=== PATIENT | male | born 1990 | race Caucasian/White ===

== ENCOUNTER 2024-01-22 00:43 | Emergency (ER) | payer OTHER, SELFPAY ==
--- NOTE | ~2024-01-22 | CT_ITS ---
CT of the Abdomen and Pelvis: Indication: Abdominal pain Technique: 2.5 mm axial scans were obtained through the abdomen and pelvis following intravenous adm inistration of 100 cc of Omnipaque 350. Dose reduction technique was used on this scan by utilizing a utomated exposure control and iterative reconstruction technique. The dose-length product (DLP) was 6 63.73 mGy-cm. Findings: Scans through the lung bases are unremarkable. The liver, spleen, pancreas, gallbladder, adrenals and kidneys are within normal limits. No evidence of aortic aneurysm. No lymphadenopathy. No bowel obstruction or bowel wall thickening. There is no evidence to suggest acute appendicitis. Images through the pelvis were performed. Urinary bladder unremarkable. No pelvic mass seen. No ascit es. Impression: No significant abnormalities seen. Reviewed, dictated and finalized at location . [facility] CONSULTANT Impression: No significant abnormalities seen.
[2024-01-22 00:49] VITALS: BP 143/99; PULSE 65; RESP 18; TEMP 36.6; O2SAT 100
[2024-01-22 00:53] VITALS: BP 143/99; PULSE 61; RESP 18; TEMP 36.6; O2SAT 100
--- NOTE | 2024-01-22 00:56 | ED_ITS ---
HPI - Abdominal Pain General Chief Complaint: Abdominal Pain <ASHKAN Handy Last Filed: 01/22/24 03:10> Stated Complaint: abd pain <ASHKAN Handy Last Filed: 01/22/24 03:10> Time Seen by Provider: 01/22/24 00:44 <ASHKAN Handy Last Filed: 01/22/24 03:10> History of Present Illness HPI narrative: 33-year-old male with no past medical history presents emergency department for left lower quadrant abdominal pain intermittently for 3 days. Patient states the pain is sharp and located on his left lower quadrant, worse after bowel movement and when sitting up. He reports associated nausea and vomiting this afternoon. Denies fever, dysuria or hematuria, history of kidney stones or diverticulitis. Denies diarrhea, hematochezia or melena, fever. No prior abdominal surgeries. Last bowel movement was yesterday and normal. <ASHKAN Handy Last Filed: 01/22/24 03:10> Related Data Allergies/Adverse Reactions: Allergies Allergy/AdvReac Type Severity Reaction Status Date / Time No Known Allergies Allergy Verified 01/22/24 00:53 <ASHKAN Handy Last Filed: 01/22/24 03:10> Review of Systems Review of Systems: All systems reviewed & are unremarkable except as noted in HPI and below <ASHKAN Handy Last Filed: 01/22/24 03:10> Exam Narrative: GENERAL: Well-appearing, well-nourished, and in no acute distress. HEAD: Normocephalic, atraumatic. EYES: EOMI. ENT: Nares clear, no rhinorrhea or epistaxis. Mucous membranes moist. NECK: Supple. CHEST: Clear to auscultation. No respiratory distress. HEART: Regular rate and rhythm. No murmur heard. Normal peripheral pulses. ABDOMEN: Normoactive bowel sounds. Abdomen soft with tenderness in the left l ower quadrant. No rebound, guarding or rigidity. No CVA tenderness. EXTREMITIES: Normal range of motion. No edema. SKIN: Warm, dry, no rash. NEURO: No focal deficits. Alert and oriented x3 <Imani Bella PA-C - Last Filed: 01/22/24 03:10> Course SUPERVISOR OF OFFICIALS/PA Physician Supervision For this patient encounter, I reviewed the SUPERVISOR OF OFFICIALS or PA documentation, treatment plan, and medical decision making; and I had [id number] time with this patient. <Dany Bauer MD - Last Filed: 01/25/24 10:07> Vital Signs Vital signs: Vital Signs Temperature 97.8 F 01/22/24 00:49 Pulse Rate 65 01/22/24 00:49 Respiratory Rate 18 01/22/24 00:49 Blood Pressure 143/99 H 01/22/24 00:49 Pulse Oximetry 100 01/22/24 00:49 Oxygen Delivery Room Air 01/22/24 00:49 Temperature 98.2 F 01/22/24 05:25 Pulse Rate 67 01/22/24 05:25 Respiratory Rate 14 01/22/24 05:25 Blood Pressure 140/88 01/22/24 05:25 Pulse Oximetry 100 01/22/24 05:25 Oxygen Delivery Room Air 01/22/24 00:49 <Imani Bella PA-C - Last Filed: 01/22/24 03:10> Vital Signs Temperature 97.8 F 01/22/24 00:49 Pulse Rate 65 01/22/24 00:49 Respiratory Rate 18 01/22/24 00:49 Blood Pressure 143/99 H 01/22/24 00:49 Pulse Oximetry 100 01/22/24 00:49 Oxygen Delivery Room Air 01/22/24 00:49 Temperature 98.2 F 01/22/24 05:25 Pulse Rate 67 01/22/24 05:25 Respiratory Rate 14 01/22/24 05:25 Blood Pressure 140/88 01/22/24 05:25 Pulse Oximetry 100 01/22/24 05:25 Oxygen Delivery Room Air 01/22/24 00:49 <Dany Bauer MD - Last Filed: 01/25/24 10:07> MDM - Abdominal Pain MDM Narrative Medical decision making narrative: 33-year-old male presents emergency department for left lower quadrant abdominal pain for 3 days, worsening this evening. Triage vitals are stable. He is afebrile nontoxic appearing. Exam is significant for the above. CBC without leukocytosis or anemia. Chemistries are unremarkable. Lipase normal. UA with leuk esterase, no UTI or RBCs Pending CT abdomen/pelvis at time of sign-out to Dr. Bauer. <Imani Bella PA-C - Last Filed: 01/22/24 03:10> 33-year-old male presents emergency department for left lower quadrant abdominal pain for 3 days, worsening this evening. Triage vitals are stable. He is afebrile nontoxic appearing. Exam is significant for the above. CBC without leukocytosis or anemia. Chemistries are unremarkable. Lipase normal. UA with leuk esterase, no UTI or RBCs Pending CT abdomen/pelvis at time of sign-out to Dr. Bauer. --- CT scan showed normal appendix no evidence of bowel obstruction diverticulosis the diverticulitis without any other acute findings. Patient was updated the results of his labs and imaging. Patient was encouraged to take Tylenol and ibuprofen for pain control and to have close follow-up with his primary care physician. <Dany Bauer MD - Last Filed: 01/25/24 10:07> Lab Data Result diagrams: 01/22/24 02:38 01/22/24 02:38 <Imani Bella PA-C - Last Filed: 01/22/24 03:10> Labs: Lab Results 01/22/24 01/22/24 Range/Units 02:38 02:48 WBC 8.7 (4.5-10.0) K/mm3 RBC 5.44 (4.6-6.20) M/mm3 Hgb 15.7 (14.0-18.0) g/dL Hct 45.0 (42.0-52.0) % MCV 82.7 (80-100) fl MCH 28.9 (26-34) pg MCHC 34.9 (32-36) g/dl RDW 13.1 (11.5-14.5) % Plt Count 264 (150-375) k/mm3 MPV 10.8 H (7.4-10.4) fl Immature Gran % (Auto) 0.3 (0-0.5) % Neut % (Auto) 58.6 (45.5-73.1) % Lymph % (Auto) 27.1 (18.3-44.2) % [place] % (Auto) 8.1 (2.6-8.5) % Eos % (Auto) 4.9 H (0-4.4) % Baso % (Auto) 1.0 (0.2-1.2) % Lymph # (Auto) 2.36 (0.9-3.2) K/mm3 [place] # (Auto) 0.7 H (0.1-0.6) K/mm3 Eos # (Auto) 0.4 H (0-0.3) K/mm3 Baso # (Auto) 0.1 (0.0-0.1) K/mm3 Abs Immat Gran (auto) 0.03 (0.00-0.031) K/mm3 Absolute Neuts (auto) 5.1 (1.3-6.7) K/mm3 Absolute Nucleated RBC 0.000 (0.0-0.012) K/mm3 Nucleated RBC % 0.0 (0.0-0.2) % Sodium 139 (137-145) mmol/L Potassium 3.5 (3.4-5.0) mmol/L Chloride 100 (98-107) mmol/L Carbon Dioxide 29 (22-30) mmol/L Anion Gap 10 (4-12) mmol/L BUN 15 (9-20) mg/dL Creatinine 1.00 (0.7-1.3) mg/dL Estim Creat Clear Calc 101 ml/min Estimated GFR > 60 (59 - ) Glucose 93 (65-110) mg/dL Calcium 9.6 (8.4-10.2) mg/dL Total Bilirubin 0.7 (0.2-1.3) mg/dL AST 26 (17-59) U/L ALT 27 (6-50) U/L Alkaline Phosphatase 69 (38-126) U/L Total Protein 8.0 (6.3-8.2) g/dL Albumin 4.8 (3.5-5.1) g/dL Lipase 84 (23-300) U/L Urine Color Yellow (Yellow) Urine Appearance Clear (Clear) Urine pH 7.0 (5.0-9.0) Ur Specific [place] 1.019 (1.001-1.035) Urine Protein Negative (Negative) mg/dL Urine Glucose (UA) Negative (Negative) mg/dL Urine Ketones Negative (Negative) mg/dL Ur Blood (Man) Negative (Negative) Urine Nitrate Negative (Negative) Urine Bilirubin Negative (Negative) Urine Urobilinogen 0.2 (<2.0) mg/dL Add Ur Microanalysis Reviewed Leukocyte Esterase Rfl 1+ H (Negative) JUAN/UL Urine RBC 0-2 (0-2) /hpf Urine WBC 0-5 (0-3) /hpf Ur Squamous Epith Cells None seen (Few) /hpf Urine Bacteria None seen /hpf Urine Casts 0-2 <Imani Bella PA-C - Last Filed: 01/22/24 03:10> Lab Results 01/22/24 01/22/24 Range/Units 02:38 02:48 WBC 8.7 (4.5-10.0) K/mm3 RBC 5.44 (4.6-6.20) M/mm3 Hgb 15.7 (14.0-18.0) g/dL Hct 45.0 (42.0-52.0) % MCV 82.7 (80-100) fl MCH 28.9 (26-34) pg MCHC 34.9 (32-36) g/dl RDW 13.1 (11.5-14.5) % Plt Count 264 (150-375) k/mm3 MPV 10.8 H (7.4-10.4) fl Immature Gran % (Auto) 0.3 (0-0.5) % Neut % (Auto) 58.6 (45.5-73.1) % Lymph % (Auto) 27.1 (18.3-44.2) % [place] % (Auto) 8.1 (2.6-8.5) % Eos % (Auto) 4.9 H (0-4.4) % Baso % (Auto) 1.0 (0.2-1.2) % Lymph # (Auto) 2.36 (0.9-3.2) K/mm3 [place] # (Auto) 0.7 H (0.1-0.6) K/mm3 Eos # (Auto) 0.4 H (0-0.3) K/mm3 Baso # (Auto) 0.1 (0.0-0.1) K/mm3 Abs Immat Gran (auto) 0.03 (0.00-0.031) K/mm3 Absolute Neuts (auto) 5.1 (1.3-6.7) K/mm3 Absolute Nucleated RBC 0.000 (0.0-0.012) K/mm3 Nucleated RBC % 0.0 (0.0-0.2) % Sodium 139 (137-145) mmol/L Potassium 3.5 (3.4-5.0) mmol/L Chloride 100 (98-107) mmol/L Carbon Dioxide 29 (22-30) mmol/L Anion Gap 10 (4-12) mmol/L BUN 15 (9-20) mg/dL Creatinine 1.00 (0.7-1.3) mg/dL Estim Creat Clear Calc 101 ml/min Estimated GFR > 60 (59 - ) Glucose 93 (65-110) mg/dL Calcium 9.6 (8.4-10.2) mg/dL Total Bilirubin 0.7 (0.2-1.3) mg/dL AST 26 (17-59) U/L ALT 27 (6-50) U/L Alkaline Phosphatase 69 (38-126) U/L Total Protein 8.0 (6.3-8.2) g/dL Albumin 4.8 (3.5-5.1) g/dL Lipase 84 (23-300) U/L Urine Color Yellow (Yellow) Urine Appearance Clear (Clear) Urine pH 7.0 (5.0-9.0) Ur Specific [place] 1.019 (1.001-1.035) Urine Protein Negative (Negative) mg/dL Urine Glucose (UA) Negative (Negative) mg/dL Urine Ketones Negative (Negative) mg/dL Ur Blood (Man) Negative (Negative) Urine Nitrate Negative (Negative) Urine Bilirubin Negative (Negative) Urine Urobilinogen 0.2 (<2.0) mg/dL Add Ur Microanalysis Reviewed Leukocyte Esterase Rfl 1+ H (Negative) JUAN/UL Urine RBC 0-2 (0-2) /hpf Urine WBC 0-5 (0-3) /hpf Ur Squamous Epith Cells None seen (Few) /hpf Urine Bacteria None seen /hpf Urine Casts 0-2 <Dany Bauer MD - Last Filed: 01/25/24 10:07> Imaging Data Radiologist's impression: ITS Impressions Abdomen/Pelvis CT 01/22/24 05:45 Impression: No significant abnormalities seen. <Imani Bella PA-C - Last Filed: 01/22/24 03:10> ITS Impressions Abdomen/Pelvis CT 01/22/24 05:45 Impression: No significant abnormalities seen. Overnight read CT abdomen pelvis with contrast Impression: Normal appendix. No evidence of bowel obstruction. Colonic diverticulosis. No evidence of diverticulitis. No other acute findings. <Dany Bauer MD - Last Filed: 01/25/24 10:07> Discharge Plan Discharge Clinical Impression: Abdominal pain <Imani Bella PA-C - Last Filed: 01/22/24 03:10> Patient Disposition: Home, Self-Care <Imani Bella PA-C - Last Filed: 01/22/24 03:10> Condition: Stable <Imani Bella PA-C - Last Filed: 01/22/24 03:10> Instructions: Antibiotic Form, Abdominal Pain (ED) <Imani Bella PA-C - Last Filed: 01/22/24 03:10> Additional Instructions: Tylenol and ibuprofen for pain control. Drink plenty of fluids. Have close follow-up with your primary care physician. If you have any worsening symptoms then please call or return to the emergency department. <Imani Bella PA-C - Last Filed: 01/22/24 03:10> Follow-up/Referrals: UNKNOWN,DOCTOR [Primary Care Provider] - <Imani Bella PA-C - Last Filed: 01/22/24 03:10>
[2024-01-22] MEDS: KETOROLAC 30 MG/ML VIAL (*BKC) 15 MG IV PUSH (01:14)
[2024-01-22] MEDS: ONDANSETRON INJ 4 MG/2 ML VIAL IV PUSH (01:17)
[2024-01-22 02:44] LABS: Basophils Absolute Auto 0.1 K/mm3 (0.0-0.1); Eosinophils Absolute Auto 0.4 K/mm3 (0-0.3); Eosinophils Percent Auto 4.9 % (0-4.4); Hemoglobin 15.7 g/dL (14.0-18.0); Immature Granulocyte Absolute 0.03 K/mm3 (0.00-0.031); Immature Granulocyte Percent A 0.3 % (0-0.5); Lymphocytes Absolute Auto 2.36 K/mm3 (0.9-3.2); Lymphocytes Percent Auto 27.1 % (18.3-44.2); Mean Corpuscular HGB Conc 34.9 g/dl (32-36); Mean Corpuscular Hemoglobin 28.9 pg (26-34); Mean Corpuscular Volume 82.7 fl (80-100); Mean Platelet Volume 10.8 fl (7.4-10.4); Monocytes Absolute Auto 0.7 K/mm3 (0.1-0.6); Monocytes Percent Auto 8.1 % (2.6-8.5); Neutrophils Absolute Auto 5.1 K/mm3 (1.3-6.7); Neutrophils Percent Auto 58.6 % (45.5-73.1); Platelet Count Result 264 k/mm3 (150-375); Red Blood Count 5.44 M/mm3 (4.6-6.20); Red Cell Distribution Width 13.1 % (11.5-14.5); White Blood Count 8.7 K/mm3 (4.5-10.0)
[2024-01-22] MEDS: MORPHINE SULFATE (*CRX) 4 MG/ML INJ IV PUSH ×2 (02:45→05:18)
[2024-01-22 02:56] LABS: Alanine Aminotransferase 27 U/L (6-50); Albumin Level 4.8 g/dL (3.5-5.1); Alkaline Phosphatase 69 U/L (38-126); Anion Gap 10 mmol/L (4-12); Aspartate Amino Transferase 26 U/L (17-59); Bilirubin,Total 0.7 mg/dL (0.2-1.3); Blood Urea Nitrogen 15 mg/dL (9-20); Calcium 9.6 mg/dL (8.4-10.2); Carbon Dioxide 29 mmol/L (22-30); Chloride 100 mmol/L (98-107); Estimated CRCL calculation 101 ml/min; Estimated Glomerular Filt Rate > 60; Glucose 93 mg/dL (65-110); Lipase 84 U/L (23-300); Potassium 3.5 mmol/L (3.4-5.0); Sodium 139 mmol/L (137-145)
[2024-01-22 03:06] VITALS: BP 144/93; PULSE 63; RESP 14; O2SAT 99
[2024-01-22 03:07] LABS: Add Urine Microscopic? YES; Appearance Urine Clear (Clear); Bacteria Urine None Seen /hpf; Bilirubin Urine Negative (Negative); Blood Urine Negative (Negative); Color Urine Yellow (Yellow); Glucose Urine UA Negative (Negative); Ketones Urine Negative (Negative); Leukocyte Esterase Ur 1+ LEU/UL (Negative); Need Manual Microscopic Reviewed; Nitrate Urine Negative (Negative); Non Pathogenic Casts 0-2; Protein Urine Negative (Negative); RBC Urine 0-2 /hpf (0-2); Specific Grav Ur 1.019 (1.001-1.035); Squamous Epithelial Cell Urine None Seen /hpf (Few); Urobilinogen Urine 0.2 mg/dL (<2.0); WBC Urine 0-5 /hpf (0-3)
--- NOTE | 2024-01-22 04:20 | PC.NURSE ---
pt stated he would like to wait a little for pain medication
[2024-01-22 05:23] VITALS: BP 140/88; PULSE 67; RESP 14; TEMP 36.8; O2SAT 100
[2024-01-22 05:25] VITALS: BP 140/88; PULSE 67; RESP 14; TEMP 36.8; O2SAT 100
== END 2024-01-22 05:27 | disposition home or self-care (01) ==
PROVIDERS: Emergency Provider Physician Assistant
DX: R10.32 Left lower quadrant pain (principal)
CPT/HCPCS: 36415; 74177; 80053; 81001; 83690; 85025; 87086; 96374; 96375; 96376; 99284; J1885; J2270; J2405; Q9967